=== PATIENT | female | born 1975 | race Caucasian/White ===

== ENCOUNTER → 2020-02-22 | Outpatient (CLI) | payer BC ==
[~2020-02-22] MED LIST: NORCO; OMEP20ER; Percocet 5-3251 EACH PO; TAMS.4ER PO; Zofran Odt8 MG SL
== END ==
LOC: LAB SHORT 07:41 → PLD 07:41
DX: L82.1 Other seborrheic keratosis (principal)
CPT/HCPCS: 88305

== ENCOUNTER → 2020-06-12 | Outpatient (CLI) | payer BC ==
[2020-06-14 11:54] LABS: CORNONAVIRUS (COVID19) CSH-NRL Negative (Negative)
== END ==
LOC: LAB EV 13:04 → LAB SHORT 13:04
PROVIDERS: Nurse Practitioner Family
DX: Z20.9 Contact with and (suspected) exposure to unspecified communicable disease (principal); Z20.828 Contact with and (suspected) exposure to other viral communicable diseases
CPT/HCPCS: U0003

== ENCOUNTER → 2023-03-03 | Outpatient (CLI) | payer OTHER ==
[2023-03-06 10:13] LABS: HPV 16 Negative (Negative); HPV 18 Negative (Negative); HPV OTHER HR TYPES Negative (Negative)
== END ==
LOC: LAB SHORT 15:48 → LAB 15:48
PROVIDERS: Family Medicine
DX: Z01.419 Encounter for gynecological examination (general) (routine) without abnormal findings (principal)
CPT/HCPCS: 87624; G0145

== ENCOUNTER 2024-09-22 19:58 | Emergency (ER) | payer OTHER, BC ==
[~2024-09-22] VITALS: Ht 167.6 cm; Wt 121.6 kg
[2024-09-22 20:09] VITALS: BP 172/113
[2024-09-22 20:37] LABS: BASOPHILS ABSOLUTE AUTO 0.05 K/mm3 (0.00-0.23); BASOPHILS PERCENT AUTO 1 % (0-2); EOSINOPHILS ABSOLUTE AUTO 0.17 K/mm3 (0.00-0.68); EOSINOPHILS PERCENT AUTO 2 % (0-6); Hematocrit 39.6 % (33.0-51.0); IMMATURE GRAN ABSOLUTE AUTO 0.02 K/mm3 (0.00-0.10); IMMATURE GRAN PERCENT AUTO 0 % (0-1); LYMPHOCYTES ABSOLUTE AUTO 2.67 K/mm3 (0.84-5.20); LYMPHOCYTES PERCENT AUTO 27 % (21-46); MONOCYTES ABSOLUTE AUTO 0.59 K/mm3 (0.16-1.47); MONOCYTES PERCENT AUTO 6 % (4-13); Mean Corpuscular HGB 30.5 pg (26.0-34.0); Mean Corpuscular HGB Conc 35.4 g/dL (31.5-36.5); Mean Corpuscular Volume 86 fL (80-100); Mean Platelet Volume 8.5 fL (9.1-12.4); NEUTROPHILS ABSOLUTE AUTO 6.28 K/mm3 (1.96-9.15); NEUTROPHILS PERCENT AUTO 64 % (41-73); Platelet Count 326 K/mm3 (150-400); RDW Coefficient Variation 13.2 % (11.7-14.2); RDW Standard Deviation 41.2 fL (35.1-46.3); Red Blood Cell Count 4.59 M/mm3 (3.80-5.20); White Blood Cell Count 9.78 K/mm3 (4.00-11.30)
[2024-09-22] MEDS ORDERED: Ketorolac Tromethamine 15mg Vial IV ONE (21:05)
[2024-09-22] MEDS ORDERED: Morphine Sulfate 4 MG/1 ML Injection IV ONE (21:05)
[2024-09-22 21:07] LABS: Albumin, Blood 3.6 g/dL (3.4-5.0); Albumin/Globulin Ratio 0.9 (0.8-1.8); Bilirubin, Total 0.3 mg/dL (0.1-1.0); Bun/Creatinine Ratio 23.9 (12.0-20.0); Creatinine, Blood 0.67 mg/dL (0.40-1.00); Globulin, Blood 3.9 g/dL (2.2-4.0); Potassium, Blood 3.2 mmol/L (3.5-5.5); Total Protein, Blood 7.5 g/dL (6.4-8.2)
[2024-09-22] MEDS ORDERED: CYCL10 PO (22:02)
== END 2024-09-22 22:13 | disposition home or self-care (01) ==
LOC: ER 19:58
PROVIDERS: Student in an Organized Health Care Education/Training Program
DX: M54.50 Low back pain, unspecified (principal); Z87.442 Personal history of urinary calculi
CPT/HCPCS: 74176; 80053; 85025; 96374; 96375; 99284-25; J1885; J2270

== ENCOUNTER 2024-10-13 06:45 | Day surgery (SDC) | payer BC, OTHER ==
[~2024-10-13] VITALS: Ht 170.2 cm; Wt 122.9 kg
[2024-10-13] VITALS (15 sets, daily range): BP systolic 123–161; BP diastolic 71–101
[~2024-10-13 06:45] MED LIST changes: +ASCO500 PO; +CYCL10 PO; +CeFAZolin Sodium 2,000 MG in NS 100 ML IV SCH; +CeFAZolin Sodium 3,000 MG VIAL ONE; +CeFAZolin Sodium 3,000 MG in NS 100 ML IV SCH; +Dexmedetomidine HCL 200 MCG / 2 ML ONE; +HYDCHL25 PO; +IBUP200 PO; +LOSA25 PO; +Lactated Ringer's 1,000 ML IV SCH; +Lidocaine HCl 4% 5 ML SDA ONE; +MAGNESIUM OXID500 MG PO; +MIRENA1 EAC3 VAG; +ONDA4ODT MM; +OXYC5 PO; +RIZATRIPTAN10 MG SL; +[UNRECOGNIZED DRUG - OTHER] PO; +propofoL 200 ML IV ONE
[2024-10-13] MEDS ORDERED: DiphenhydrAMINE HCl 50 MG/ML 1ML Vial ONE (06:49)
[2024-10-13] MEDS ORDERED: Dexamethasone Sod Phos 10 MG/ML 1ML VIAL ONE (06:49)
[2024-10-13] MEDS ORDERED: Ondansetron HCl 2 MG / ML 2ML Vial ONE (06:49)
[2024-10-13] MEDS ORDERED: Rocuronium Bromide 10 MG/ML 5ML Injection IV ONE ×2 (06:49→08:53)
[2024-10-13] MEDS ORDERED: Lidocaine HCl 2% 20 ML MDV ONE (06:49)
[2024-10-13] MEDS ORDERED: Sugammadex Sodium 200 MG/2ML SDV (100 MG/ML) ONE (06:49)
[2024-10-13] MEDS ORDERED: Metoclopramide HCl 5MG / ML 2ML Vial ONE (06:49)
[2024-10-13] MEDS ORDERED: HYDROmorphone HCl/Pf 1MG SYR ONE ×2 (06:49→09:12)
[2024-10-13] MEDS ORDERED: Ketorolac Tromethamine 30mg Vial ONE (06:49)
--- NOTE | 2024-10-13 06:55 | NUR ---
AMBULATORY INTO [facility]. HISTORY AND ALLERGIES REVIEWED. LUNGS CLEAR. NO NOTED SOB. SATS>90% ON RA. NPO STATUS CONFIRMED. PT SPOUSE IS RIDE HOME TODAY. PT CLOTHING AND SHOES IN BELONGINGS BAG BELOW THE GURNEY.
[2024-10-13] MEDS ORDERED: Bupivacaine 0.5% W/EPI 1:200000 SDV 30 ML Vial ONE (06:59)
[2024-10-13] MEDS ORDERED: Bupivacaine 0.5% HCl 5 MG/ML 30MLVIAL ONE (07:00)
[2024-10-13] MEDS ORDERED: Acetaminophen 500 MG Tab ONE (07:06)
[2024-10-13] MEDS ORDERED: propofoL 40 ML IV ONE (07:28)
[2024-10-13] MEDS ORDERED: Acetaminophen 500 MG Tab PO SCH (07:30)
[2024-10-13] MEDS ORDERED: Albuterol HFA200 ACT/6.7 GM INH ONE (07:49)
[2024-10-13] MEDS ORDERED: FentaNYL Citrate 50 MCG/ML 2 ML Injection ONE (08:26)
[2024-10-13] MEDS ORDERED: Labetalol HCL 5 MG/ML 4ML Injection (Single Dose) ONE (08:47)
[2024-10-13] MEDS ORDERED: HYDROmorphone HCl/Pf 1MG SYR IV PRN (09:50)
[2024-10-13] MEDS ORDERED: DiphenhydrAMINE HCL 25 MG Cap PO PRN (09:50)
[2024-10-13] MEDS ORDERED: FLU VACC TS2024-25(6MOS UP)/PF 45 MCG/0.5 ML SYRINGE IM SCH (09:50)
[2024-10-13] MEDS ORDERED: Naloxone HCl 0.4MG / ML 1ML Vial IV PRN (09:55)
[2024-10-13] MEDS ORDERED: Metoclopramide HCl 10 MG Tab PO PRN (09:55)
[2024-10-13] MEDS ORDERED: Acetaminophen 325 MG TABLET PO PRN (09:55)
[2024-10-13] MEDS ORDERED: Ondansetron HCl 2 MG / ML 2ML Vial IV PRN (09:55)
[2024-10-13] MEDS ORDERED: Simethicone 80 MG Chew PO PRN (09:55)
[2024-10-13] MEDS ORDERED: Lactated Ringer's 1,000 ML IV SCH (09:55)
[2024-10-13] MEDS ORDERED: OxyCODONE HCL 5 MG TAB PO PRN (09:55)
[2024-10-13] MEDS ORDERED: Metoclopramide HCl 5MG / ML 2ML Vial IV PRN (10:00)
[2024-10-13] MEDS ORDERED: Ketorolac Tromethamine 30mg Vial IV PRN (10:05)
[2024-10-13] MEDS ORDERED: Losartan Potassium 25 MG Tab PO ONE (11:10)
[2024-10-13] MEDS ORDERED: ACET325 PO (15:59)
--- NOTE | 2024-10-13 16:15 | NUR ---
ASSUMED CARE OF PT FROM KELLI Banks RN. MEDICATED PER ORDERS FOR 310 ABD/PELVIC PAIN. PT REPOSITIONING SELF IN BED. CALL LIGHT IN REACH.
--- NOTE | 2024-10-13 16:21 | NUR ---
SUMMARY S/P ROBOTIC HYSTERECTOMY BY DR. ZHANG TODAY, PT ARRIVED GROGGY, DIZZY AND SLIGHTLY HYPERTENSIVE, VS MONITORED, PT'S HOME DOSE OF [place] GIVEN, TOOK A NAP MOST OF THE DAY, OOB W/ASSIST EARLY AFTERNOON, VOIDED 300 CC [place] COLORED URINE, NO CLOTS NOTED, C/O DIZZINESS WHEN FIRST GOT UP BUT TOELRATED WELL, REPORTS PAIN IS TOLERABLE W/ OXYCODONE, DENIES ANY NAUSEA, ABD LAP. INCISIONS X4 C/D/I, ABD SOFT, PT NOW RESTING COMFORTABLY IN BED, ENCOURAGED TO AMBULATE LATER THIS AFTERNOON, REPORT GIVEN TO REKHA QUIROZ.
--- NOTE | 2024-10-13 17:15 | NUR ---
PT AMBULATED, WANTS TO DISCHARGE HOME ASKED PT TO TRY VOIDING SO WE MAY DO PVR ONE MORE TIME BEFORE DISCHARGE. PT SITTING UP IN CHAIR, DRINKING FLUIDS. SPOUSE BEDSIDE.
--- NOTE | 2024-10-13 18:55 | NUR ---
discharged PT TOLERATING PO, AMBULATED IN [facility] AND PASSED VOIDING TRIAL. PAIN MANAGED W/PO PAIN MEDS AND VSS. PT WISHED TO DC HOME. REVIEWED DC INSTRUCTIONS W/PT; VERBALIZED UNDERSTANDING. PT LEFT UNIT IN WC W/POSSESSIONS AND DC PAPERWORK IN HAND, ACCOMPANIED BY SPOUSE.
[2024-10-14] MEDS ORDERED: Losartan Potassium 25 MG Tab PO SCH (09:00)
[2024-10-14] MEDS ORDERED: HydroCHLOROthiazide 25 mg Tab PO SCH (09:00)
== END 2024-10-13 18:55 | disposition home or self-care (01) ==
LOC: ORSCMMR 06:45 → ORD 07:30 → ORSCMMR 07:30 → SURS 10:26 → ORSCMMR 18:55
PROVIDERS: Obstetrics & Gynecology
PROC: 0UB74ZZ Excision of Bilateral Fallopian Tubes, Percutaneous Endoscopic Approach (ICD-10-PCS; principal; 2024-10-13 07:30)
PROC: 0UT94ZZ Resection of Uterus, Percutaneous Endoscopic Approach (ICD-10-PCS; principal; 2024-10-13 07:30)
DX: N80.03 Adenomyosis of the uterus (principal); N93.9 Abnormal uterine and vaginal bleeding, unspecified; N94.6 Dysmenorrhea, unspecified; I10 Essential (primary) hypertension; K21.9 Gastro-esophageal reflux disease without esophagitis; E66.9 Obesity, unspecified; Z68.41 Body mass index [BMI] 40.0-44.9, adult; G47.33 Obstructive sleep apnea (adult) (pediatric); Z79.899 Other long term (current) drug therapy; N72 Inflammatory disease of cervix uteri
CPT/HCPCS: 36415; 86850; 86900; 86901; 88307; A9270; J0690; J1100; J1171; J1200; J1885; J2003; J2405; J2704; J2765; J3010; J7120